=== PATIENT | male | born 1950 | race American Indian/Alaskan Native ===

== ENCOUNTER 2018-09-21 16:59 | Inpatient (IN) | payer MEDICARE ==
[2018-09-21] MEDS ORDERED: NORMODYNE IV ONE (17:28)
[2018-09-21 18:02] LABS: Basophils % (Auto) 0.2 % (0.0-1.8); Eosinophils # (Auto) 0.1 K/mm3 (0.0-0.4); Eosinophils % (Auto) 1.2 % (0.0-4.3); Hematocrit 29.9 % (35.5-45.6); Hemoglobin 10.1 gm/dl (11.8-15.2); Lymphocytes # (Auto) 0.4 K/mm3 (1.2-5.4); Lymphocytes % (Auto) 9.8 % (13.4-35.0); Mean Corpuscular HGB Conc 34 % (32-34); Mean Corpuscular Volume 77 fl (84-94); Monocytes # (Auto) 0.3 K/mm3 (0.0-0.8); Monocytes % (Auto) 7.8 % (0.0-7.3); Platelet Count 185 K/mm3 (140-440); Red Blood Count 3.88 M/mm3 (3.65-5.03); Red Cell Distribution Width 14.3 % (13.2-15.2)
--- NOTE | 2018-09-21 18:05 | XRay Report ---
PROCEDURE: XR CHEST 1V AP TECHNIQUE: Chest radiograph single view. HISTORY: blurry vision TIA COMPARISONS: None . FINDINGS: Single frontal view of the chest was acquired. The heart is normal in size. The lungs appea r clear. The pleura and mediastinum are within normal limits. IMPRESSION: No active disease in the chest This document is electronically signed by Orlin Gamboa MD., Sep 21 2018 06:03:43 PM ET
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
[2018-09-21] MEDS ORDERED: HumuLIN R IV ONE (18:10)
[2018-09-21 18:12] LABS: INR 1.03 (0.87-1.13); Partial Thromboplastin Time 27.3 Sec. (24.2-36.6)
[2018-09-21 18:13] LABS: Thrombin Time 15.7 Sec. (15.1-19.6)
[2018-09-21 18:27] LABS: Alanine Aminotransferase 10 units/L (7-56); Albumin 3.9 g/dL (3.9-5); BUN/Creatinine Ratio 13; Blood Urea Nitrogen 25 mg/dL (9-20); Hemolysis Index 2
--- NOTE | 2018-09-21 20:02 | Cat Scan Report ---
PROCEDURE: CT HEAD/BRAIN WO CON TECHNIQUE: Computerized tomography of the head was performed without contrast material. CT DOSE LENGTH PRODUCT: 912.7 mGycm HISTORY: Stroke symptoms COMPARISONS: None . FINDINGS: Low-attenuation in the subcortical and deep white matter of the cerebral hemispheres bilaterally most likely represent chronic postischemic demyelination/small vessel disease. There are lacunar infarcts in the right caudate, thalami bilaterally and within the fabian on the right , some of indeterminate age. There is no evidence of intracranial hemorrhage or mass effect. Ventricular size is concordant with the degree of atrophy. There is atherosclerotic vascular calcification of the internal carotid arteries and vertebral arteri es bilaterally at the skull base. The visualized portions of the orbits, paranasal and mastoid sinuses are unremarkable. The bony structures are unremarkable. IMPRESSION: 1. Lacunar infarcts in the right caudate, thalami bilaterally and fabian on the right, some of indeterm inate age. 2. White matter changes that most likely represent chronic postischemic demyelination/small vessel di sease. If there is a clinical suspicion of an acute intracranial process, MRI brain may be helpful.. This document is electronically signed by Shona Davidson MD., Sep 21 2018 06:40:18 PM ET
[2018-09-21] MEDS ORDERED: MORPHINE IV PRN (20:04)
[2018-09-21] MEDS ORDERED: PERCOCET 5/325 PO PRN (20:04)
[2018-09-21] MEDS ORDERED: ZOFRAN IV PRN (20:04)
[2018-09-21] MEDS ORDERED: SODIUM CHLORIDE FLUSH SYRINGE 10 ML IV PRN (20:04)
[2018-09-21] MEDS ORDERED: D50W (25GM) Syringe IV PRN (20:04)
[2018-09-21] MEDS ORDERED: TYLENOL PO PRN (20:04)
[2018-09-21] MEDS ORDERED: NORVASC PO ONE ×2 (20:20→21:00)
[2018-09-21] MEDS ORDERED: APRESOLINE IV PRN (20:20)
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
[2018-09-21] MEDS ORDERED: NACL 0.9% 1000 ML 1,000 ML IV SCH (21:00)
[2018-09-21] MEDS ORDERED: NORVASC ONE (21:28)
[2018-09-21 21:33] LABS: Chol/HDL Ratio 4.6 %
[2018-09-22 00:09] LABS: Creatinine,Urine 102.8 mg/dL (0.1-20.0)
[2018-09-22] MEDS: COREG PO SCH ×3 (07:43→21:52)
[2018-09-22] MEDS: COLACE PO SCH ×3 (07:43→21:52)
[2018-09-22] MEDS: HEPARIN SUB-Q SCH ×3 (07:43→21:51)
[2018-09-22] MEDS: HumaLOG SUB-Q SCH ×8 (07:44→21:51)
[2018-09-22] MEDS: LANTUS SUB-Q SCH ×2 (07:44→21:50)
[2018-09-22] MEDS: SODIUM CHLORIDE FLUSH SYRINGE 10 ML IV SCH ×3 (07:45→21:53)
[2018-09-22 07:49] LABS: Basophils % (Auto) 0.4 % (0.0-1.8); Eosinophils # (Auto) 0.1 K/mm3 (0.0-0.4); Eosinophils % (Auto) 3.1 % (0.0-4.3); Hematocrit 29.4 % (35.5-45.6); Hemoglobin 10.2 gm/dl (11.8-15.2); Lymphocytes # (Auto) 0.5 K/mm3 (1.2-5.4); Lymphocytes % (Auto) 12.6 % (13.4-35.0); Mean Corpuscular HGB Conc 35 % (32-34); Mean Corpuscular Volume 76 fl (84-94); Monocytes # (Auto) 0.4 K/mm3 (0.0-0.8); Platelet Count 181 K/mm3 (140-440); Red Blood Count 3.85 M/mm3 (3.65-5.03); Red Cell Distribution Width 14.2 % (13.2-15.2)
[2018-09-22 08:11] LABS: Calcium 8.9 mg/dL (8.4-10.2)
--- NOTE | 2018-09-22 08:19 | Progress Note ---
Assessment and Plan Assessment and plan: Patient is a 68 yo man with a history of DM type 2, hypertension, PVD, TIA and Diabetes retinopathy who presents to [facility] ED with dizziness and blurry vision. Pt states that he ran out of his blood pressure medicine approximately 2-3 days ago. He admits to being noncompliant with metformin. On presentation, patient was diaphoretic, in hypertensive emergency with blood pressure 200/110, tachycardic with heart rate 1 10 bpm and a blood glucose level of 405. BUN and creatinine elevated at 25/2.0. CT head showed chronic lacunar infarcts in the right caudate, thalami bilaterally and fabian on the right, some of indeterminate age. MRI/MRA pending. Will admit to telemetry unit. He is a very poor histor mariola * EKG: image reviewed (sinus rhythm at 82 bpm, prolonged WI interval) * Chest x-ray: report reviewed (no acute cardiopulmonary abnormalities), image reviewed * CT Scan - head: report reviewed (Lacunar infarcts in the right caudate, thalami bilaterally and fabian on the right, some of indeterminate age.White matter changes that most likely represent chronic postischemic demyelination/small vessel disease. If there is a clinical suspicion of an acute intracranial process, MRI brain may be helpful.), image reviewed MRI - head: pending Dizziness with Blurry vision: no Ophthalomologist available here but he saw his eye doctor, he doesn't exactly know his doctor name and he doesn't have his number, he calls the Laundry Assistant, Dr. Tse (sp) whom he saw about 2 months a go and was told he needed Laser eye surgery but insurance referral never came through, his vision continued to declined to the point, he can't see anymore. Will continue work up for stroke Malignant Hypertension with urgency: treat with IV antihypertensives, low salt diet, juvenile counselor on compliance, Start Norvasc 10 mg daily, Coreg 12.5mg twice a day Suspicion of TIA: MRI head pending, treat with asa and statins, Neuro checks per stroke protocol DM2- uncontrolled hyperglycemia: add ssi, ada diet, A1C is 12 Microcytic Anemia appears chronic: juvenile counselor on colonoscopy, monitor cbc closely HUANG, tubular necrosis and vasomotor nephropathy, poa, Cr 2.0-->1.7: treat with IVF and monitor bmp closely Hyponatremia, Dehydration: treat with IVF and monitor bmp closely PAD associated with DM, 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 Follow-up on current diagnosis of dizziness and uncontrolled bp. No overnight events reported to me. Patient denies any chest pain, shortness breath, nausea/vomiting or severe headaches. Imaging, nursing note, chart, labs and old chart reviewed. Discussed with patient. Hospitalist Physical - Physical exam Narrative exam: Gen: WDWN, NAD, Awake, Alert, Orientated HEENT: NCAT, EOMI, PERRL, OP Clear Neck: supple, no adenopathy, no thyromegaly, no JVD CVS/Heart: RRR, normal S1S2, pulses present bilaterally Chest/Lungs: CTA B, Symmetrical chest expansion, good air entry bilaterally GI/Abdomen: soft, NTND, good bowel sounds, no guarding or rebound /Bladder: no suprapubic tenderness, no CVA or paraspinal tenderness Extermity/Skin: no c/c/e, no obvious rash MSK: FROM x 4 Neuro: CN 2-12 grossly intact, no new focal deficits Psych: calm - Constitutional Vitals: Temp Pulse Resp BP Pulse Ox 98.3 F 65 18 197/82 99 09/22/18 07:23 09/22/18 07:23 09/22/18 07:23 09/22/18 07:23 09/22/18 07:23 Results - Labs CBC & Chem 7: 09/22/18 07:18 09/22/18 07:18 Labs: Laboratory Last Values WBC 4.2 K/mm3 (4.5-11.0) L 09/22/18 07:18 RBC 3.85 M/mm3 (3.65-5.03) 09/22/18 07:18 Hgb 10.2 gm/dl (11.8-15.2) L 09/22/18 07:18 Hct 29.4 % (35.5-45.6) L 09/22/18 07:18 MCV 76 fl (84-94) L 09/22/18 07:18 MCH 26 pg (28-32) L 09/22/18 07:18 MCHC 35 % (32-34) H 09/22/18 07:18 RDW 14.2 % (13.2-15.2) 09/22/18 07:18 Plt Count 181 K/mm3 (140-440) 09/22/18 07:18 Lymph % (Auto) 12.6 % (13.4-35.0) L 09/22/18 07:18 Dickey % (Auto) 10.0 % (0.0-7.3) H 09/22/18 07:18 Eos % (Auto) 3.1 % (0.0-4.3) 09/22/18 07:18 Baso % (Auto) 0.4 % (0.0-1.8) 09/22/18 07:18 Lymph # 0.5 K/mm3 (1.2-5.4) L 09/22/18 07:18 Dickey # 0.4 K/mm3 (0.0-0.8) 09/22/18 07:18 Eos # 0.1 K/mm3 (0.0-0.4) 09/22/18 07:18 Baso # 0.0 K/mm3 (0.0-0.1) 09/22/18 07:18 Seg Neutrophils % 73.9 % (40.0-70.0) H 09/22/18 07:18 Seg Neutrophils # 3.1 K/mm3 (1.8-7.7) 09/22/18 07:18 PT 14.1 Sec. (12.2-14.9) 09/21/18 Unknown INR 1.03 (0.87-1.13) 09/21/18 Unknown APTT 27.3 Sec. (24.2-36.6) 09/21/18 Unknown 15.7 Sec. (15.1-19.6) 09/21/18 Unknown Sodium 137 mmol/L (137-145) 09/22/18 07:18 Potassium 4.2 mmol/L (3.6-5.0) 09/22/18 07:18 Chloride 99.0 mmol/L (98-107) 09/22/18 07:18 Carbon Dioxide 26 mmol/L (22-30) 09/22/18 07:18 16 mmol/L 09/22/18 07:18 BUN 20 mg/dL (9-20) 09/22/18 07:18 1.7 mg/dL (0.8-1.5) H 09/22/18 07:18 Estimated GFR 49 ml/min 09/22/18 07:18 12 % 09/22/18 07:18 Glucose 291 mg/dL (75-100) H 09/22/18 07:18 POC Glucose 228 (70-105) H 09/21/18 22:28 12.0 % (4-6) H 09/21/18 Unknown Calcium 8.9 mg/dL (8.4-10.2) 09/22/18 07:18 0.30 mg/dL (0.1-1.2) 09/21/18 Unknown AST 14 units/L (5-40) 09/21/18 Unknown ALT 10 units/L (7-56) 09/21/18 Unknown 107 units/L (35-129) 09/21/18 Unknown < 0.010 ng/mL (0.00-0.029) 09/21/18 Unknown 7.4 g/dL (6.3-8.2) 09/21/18 Unknown 3.9 g/dL (3.9-5) 09/21/18 Unknown 1.1 % 09/21/18 Unknown Triglycerides 115 mg/dL (2-149) 09/21/18 Unknown Cholesterol 244 mg/dL (50-199) H 09/21/18 Unknown 181 mg/dL (50-130) H 09/21/18 Unknown 53 mg/dL (40-59) 09/21/18 Unknown 4.60 % 09/21/18 Unknown 102.8 mg/dL (0.1-20.0) H 09/21/18 23:24 58.4 mg/dL (0.1-34.0) H 09/21/18 23:24 Microalb/Creat Ratio 568.0 ug/mg 09/21/18 23:24 Active Medications - Current Medications Current Medications: Generic Name Dose Route Start Last Admin Trade Name Freq PRN Reason Stop Dose Admin Acetaminophen 650 mg 09/21/18 20:04 Tylenol PO Q4H PRN Pain MILD(1-3)/Fever >100.5/PERRY Aspirin 325 mg 09/22/18 10:00 Aspirin PO QDAY [facility] Atorvastatin Calcium 40 mg 09/21/18 22:00 09/22/18 07:45 Lipitor PO Not Given QHS [facility] Carvedilol 12.5 mg 09/21/18 22:00 09/22/18 07:43 Coreg PO Not Given BID [facility] Dextrose 50 ml 09/21/18 20:04 D50w (25gm) Syringe IV PRN PRN Hypoglycemia Docusate Sodium 100 mg 09/21/18 22:00 09/22/18 07:43 Colace PO Not Given BID [facility] Heparin Sodium (Porcine) 5,000 unit 09/21/18 22:00 09/22/18 07:43 Heparin SUB-Q Not Given Q12HR [facility] Hydralazine HCl 10 mg 09/21/18 20:20 Apresoline IV Q4HR PRN HTN SBP>160,DAVID>100 Sodium Chloride 1,000 mls @ 125 mls/hr 09/21/18 21:00 Nacl 0.9% 1000 Ml IV DIRECT [facility] Insulin Glargine 10 units 09/21/18 22:00 09/22/18 07:44 Lantus SUB-Q Not Given QHS [facility] Insulin Human Lispro 0 unit 09/21/18 22:00 09/22/18 07:44 Humalog SUB-Q Not Given ACHS [facility] Protocol Insulin Human Lispro 5 unit 09/22/18 07:30 Humalog SUB-Q [facility] Morphine Sulfate 2 mg 09/21/18 20:04 Morphine IV 09/22/18 23:59 Q4H PRN Pain, Moderate (4-6) Ondansetron HCl 4 mg 09/21/18 20:04 Zofran IV Q8H PRN Nausea And Vomiting Oxycodone/Acetaminophen 1 tab 09/21/18 20:04 Percocet 5/325 PO Q6H PRN Pain, Moderate (4-6) Sodium Chloride 10 ml 09/21/18 22:00 09/22/18 07:45 Sodium Chloride Flush Syringe 10 Ml IV Not Given BID [facility] Sodium Chloride 10 ml 09/21/18 20:04 Sodium Chloride Flush Syringe 10 Ml IV PRN PRN LINE FLUSH
[2018-09-22] MEDS: ASPIRIN PO SCH (09:53)
[2018-09-23] MEDS: HumaLOG SUB-Q SCH ×7 (08:00→22:11)
[2018-09-23 08:53] LABS: Hematocrit 31.4 % (35.5-45.6); Hemoglobin 10.7 gm/dl (11.8-15.2); Mean Corpuscular HGB Conc 34 % (32-34); Mean Corpuscular Volume 77 fl (84-94); Platelet Count 190 K/mm3 (140-440); Red Blood Count 4.05 M/mm3 (3.65-5.03); Red Cell Distribution Width 14.5 % (13.2-15.2)
[2018-09-23 09:06] LABS: Calcium 8.9 mg/dL (8.4-10.2)
--- NOTE | 2018-09-23 10:45 | Consultation ---
Past History Past Medical History: diabetes, hypertension, PVD Past Surgical History: Other (partial" refractory to) Social history: no significant social history Family history: no significant family history Medications and Allergies Allergies Allergy/AdvReac Type Severity Reaction Status Date / Time No Known Allergies Allergy Unverified 09/21/18 17:11 Home Medications Medication Instructions Recorded Confirmed Last Taken Type Metformin HCl [metFORMIN] 1,000 mg PO BID 09/21/18 09/21/18 Unknown History Active Meds: Active Medications Acetaminophen (Tylenol) 650 mg PO Q4H PRN PRN Reason: Pain MILD(1-3)/Fever >100.5/PERRY Aspirin (Aspirin) 325 mg PO QDAY [facility] Last Admin: 09/22/18 09:53 Dose: 325 mg Documented by: Atorvastatin Calcium (Lipitor) 40 mg PO QHS [facility] Last Admin: 09/22/18 21:52 Dose: 40 mg Documented by: Carvedilol (Coreg) 12.5 mg PO BID [facility] Last Admin: 09/22/18 21:52 Dose: 12.5 mg Documented by: Dextrose (D50w (25gm) Syringe) 50 ml IV PRN PRN PRN Reason: Hypoglycemia Docusate Sodium (Colace) 100 mg PO BID [facility] Last Admin: 09/22/18 21:52 Dose: 100 mg Documented by: Heparin Sodium (Porcine) (Heparin) 5,000 unit SUB-Q Q12HR [facility] Last Admin: 09/22/18 21:51 Dose: 5,000 unit Documented by: Hydralazine HCl (Apresoline) 10 mg IV Q4HR PRN PRN Reason: HTN SBP>160,DAVID>100 Sodium Chloride (Nacl 0.9% 1000 Ml) 1,000 mls @ 125 mls/hr IV DIRECT [facility] Insulin Glargine (Lantus) 10 units SUB-Q QHS [facility] Last Admin: 09/22/18 21:50 Dose: 10 units Documented by: Insulin Human Lispro (Humalog) 0 unit SUB-Q [facility]; Protocol Last Admin: 09/22/18 21:51 Dose: 4 unit Documented by: Insulin Human Lispro (Humalog) 5 unit SUB-Q [facility] Last Admin: 09/22/18 18:58 Dose: Not Given Documented by: Ondansetron HCl (Zofran) 4 mg IV Q8H PRN PRN Reason: Nausea And Vomiting Oxycodone/Acetaminophen (Percocet 5/325) 1 tab PO Q6H PRN PRN Reason: Pain, Moderate (4-6) Sodium Chloride (Sodium Chloride Flush Syringe 10 Ml) 10 ml IV BID JULIENNE Last Admin: 09/22/18 21:53 Dose: 10 ml Documented by: Sodium Chloride (Sodium Chloride Flush Syringe 10 Ml) 10 ml IV PRN PRN PRN Reason: LINE FLUSH Physical Examination - Vital Signs Vital Signs: Vital Signs Pulse Resp BP Pulse Ox 110 H 18 200/110 97 09/21/18 17:07 09/21/18 17:07 09/21/18 17:07 09/21/18 17:07 Results - Laboratory Findings CBC and BMP: 09/23/18 07:43 09/23/18 07:43 Abnormal Lab Findings: Abnormal Labs 09/21/18 09/21/18 09/21/18 17:57 22:28 23:24 WBC Hgb Hct MCV MCH MCHC Lymph % (Auto) Pickett % (Auto) Lymph # Seg Neutrophils % Sodium Chloride BUN Creatinine Glucose POC Glucose 382 H 228 H Hemoglobin A1c Cholesterol LDL Cholesterol Direct Urine Creatinine 102.8 H Urine Microalbumin 58.4 H 09/21/18 09/21/18 09/21/18 Unknown Unknown Unknown WBC 4.4 L Hgb 10.1 L Hct 29.9 L MCV 77 L MCH 26 L MCHC Lymph % (Auto) 9.8 L Pickett % (Auto) 7.8 H Lymph # 0.4 L Seg Neutrophils % 81.0 H Sodium 135 L Chloride 95.2 L BUN 25 H Creatinine 2.0 H Glucose 408 H POC Glucose Hemoglobin A1c 12.0 H Cholesterol LDL Cholesterol Direct Urine Creatinine Urine Microalbumin 09/21/18 09/22/18 09/22/18 Unknown 07:18 07:18 WBC 4.2 L Hgb 10.2 L Hct 29.4 L MCV 76 L MCH 26 L MCHC 35 H Lymph % (Auto) 12.6 L Pickett % (Auto) 10.0 H Lymph # 0.5 L Seg Neutrophils % 73.9 H Sodium Chloride BUN Creatinine 1.7 H Glucose 291 H POC Glucose Hemoglobin A1c Cholesterol 244 H LDL Cholesterol Direct 181 H Urine Creatinine Urine Microalbumin 09/22/18 09/22/18 09/23/18 11:00 21:17 07:42 WBC Hgb Hct MCV MCH MCHC Lymph % (Auto) Pickett % (Auto) Lymph # Seg Neutrophils % Sodium Chloride BUN Creatinine Glucose POC Glucose 466 H 259 H 206 H Hemoglobin A1c Cholesterol LDL Cholesterol Direct Urine Creatinine Urine Microalbumin 09/23/18 09/23/18 07:43 07:43 WBC Hgb 10.7 L Hct 31.4 L MCV 77 L MCH 26 L MCHC Lymph % (Auto) Pickett % (Auto) Lymph # Seg Neutrophils % Sodium 134 L Chloride BUN 24 H Creatinine 1.7 H Glucose 207 H POC Glucose Hemoglobin A1c Cholesterol LDL Cholesterol Direct Urine Creatinine Urine Microalbumin Assessment and Plan This is Dr. 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 Patient states that he ate a hamburger, turkmen johnson and vanilla frosty after which he started developing blurred vision which gradually got worse.When he came to the parking lot and got inside his car he was noticed by an unknown person in the parking lot that his driving was very slow and he approached him and found that he complained of blurred vision and dizziness and that person called 911, and he was brought to the hospital. Patient states that after 5 or 6 hours in the hospital he started feeling better. On arrrival to the hospital his blood sugar was found to be high. Patient states that he was not compliant with his diabetic and hypertensive medication. Although he was recommended strongly to take aspirin regularly he did not take it. On admission CT scan of the brain showed old right thalamic infarct and another left thalamic infarct which is a little bigger size than the right thalamic infarct, left caudate infarct and left pontine infarct, all small vessel disease. physical examination. Gen. In no acute distress. Patient is alert and appropriate. Has insight into his problems and answers questions appropriately. Heart. Normal rate and rhythm Carotid. Both palpable Cranial nerves. Extra ocular movement is intact. No facial asymmetry. Patient can talk and swallow, other cranial nerves are within normal limit. Motor. Normal strength in all 4 extremities and there is no asymmetry of strength, both distally and proximally in all 4 extremities. Reflexes. All reflexes are within normal limit, although both ankle reflexes are absent and there was no asymmetry of reflexes between the right and left extremities. Bilateral down going toes. Sensory. Sensory examination showed patient had decreased sensation to pinprick and light touch on right half of the face, right half of the trunk, right upper and lower extremities. Patient has right tonio sensory deficit. Coordination was within normal limit. Gait: Gait testing was deferred as patient stated that today he has no problem walking. Impression #1 Patient's blurred vision and apparent dizziness seems to be hyperglycemia induced blurred vision in a background of diabetic retinopathy. #2 Patient's right tonio sensory deficit is due to left thalamic infarct which is old. #3 Patient has evidence of multiple lacunar infarcts involving the right side and left side of the brain i.e.thalamus, caudate nucleus and fabian,all small vessel disease indicating that they are from small vessel ischemia from hyalinization of small vessels rather than embolic in origin and those conditions are due to poor control of blood pressure and diabetes. Recommendation #1 patient should be compliant with his medication and should take 81 mg aspirin and statin every day and should take his blood pressure and diabetic medication regularly #2 patient should get a dietary consult so that he can avoid eating saturated fat and high carbohydrate which can be harmful for his overall diabetic control. #3 patient should have laser therapy for his diabetic retinopathy to improve his vision. #4. Should get carotid duplex and ECHO cardiogram as out patient.
--- NOTE | 2018-09-23 11:24 | Magnetic Resonance Report ---
MRI OF THE BRAIN WITHOUT CONTRAST: HISTORY: Stroke PROCEDURE: Multiplanar, multisequence MR imaging of the brain without IV contrast was performed. FINDINGS: Compared to the CT head dated 09/21/18. There is moderate diffuse volume loss and moderate chronic ischemic changes in the white matter. There is a subtle 5 mm focus of weak diffusion restriction in the splenium of the corpus callosum on the left side on diffusion image 18. There is suggestion of decreased signal in this area on the ADC map. This could represent a small focus of subacute ischemia. Focal demyelination could also be considered. There is no evidence for hemorrhage, mass, mass effect or extra-axial fluid collection. There is chronic lacunar infarct in the right fabian measures 1 cm. Chronic lacunar infarct in the right thalamus measures 8 mm. The midline structures are central. The basal cisterns are patent. Normal ventricular size. The orbital cavities and sella turcica demonstrate no abnormality. The visualized paranasal sinuses and mastoid air cells are well aerated. IMPRESSION: Questionable 5 mm focus of subacute ischemia in the splenium of the left corpus callosum. Demyelination could also be considered. Volume loss. Moderate chronic ischemic changes in the white matter. Chronic lacunar infarcts in the right thalamus and right fabian.
--- NOTE | 2018-09-23 11:25 | Magnetic Resonance Report ---
MRA HEAD WITHOUT CONTRAST HISTORY: Stroke. [id number] imaging with MIP reformations of the [place] of [place] is submitted. The arteries appear widely patent and free of hemodynamically significant stenosis, aneurysm or dissection. IMPRESSION: Unremarkable MRA head.
[2018-09-23] MEDS: COREG PO SCH ×2 (11:58→22:09)
[2018-09-23] MEDS: SODIUM CHLORIDE FLUSH SYRINGE 10 ML IV SCH ×2 (11:58→22:12)
[2018-09-23] MEDS: ASPIRIN PO SCH (11:58)
[2018-09-23] MEDS: COLACE PO SCH ×2 (11:58→22:10)
[2018-09-23] MEDS: HEPARIN SUB-Q SCH ×2 (11:59→22:10)
--- NOTE | 2018-09-23 13:03 | Progress Note ---
Assessment and Plan Assessment and plan: Patient is a 68 yo man with a history of DM type 2, hypertension, PVD, TIA and Diabetes retinopathy who presents to [facility] ED with dizziness and blurry vision. Pt states that he ran out of his blood pressure medicine approximately 2-3 days ago. He admits to being noncompliant with metformin. On presentation, patient was diaphoretic, in hypertensive emergency with blood pressure 200/110, tachycardic with heart rate 1 10 bpm and a blood glucose level of 405. BUN and creatinine elevated at 25/2.0. CT head showed chronic lacunar infarcts in the right caudate, thalami bilaterally and fabian on the right, some of indeterminate age. MRI/MRA pending. Will admit to telemetry unit. He is a very poor histor mariola * EKG: image reviewed (sinus rhythm at 82 bpm, prolonged WV interval) * Chest x-ray: report reviewed (no acute cardiopulmonary abnormalities), image reviewed * CT Scan - head: report reviewed (Lacunar infarcts in the right caudate, thalami bilaterally and fabian on the right, some of indeterminate age.White matter changes that most likely represent chronic postischemic demyelination/small vessel disease. If there is a clinical suspicion of an acute intracranial process, MRI brain may be helpful.), image reviewed * MRI brain without contrast IMPRESSION: Questionable 5 mm focus of subacute ischemia in the splenium of the left corpus callosum. Demyelination could also be considered. Volume loss. Moderate chronic ischemic changes in the white matter. Chronic lacunar infarcts in the right thalamus and right fabian. * MRA IMPRESSION: Unremarkable MRA head. Acute Stroke/CVA: treat with ASA and statin, Physical Therapy recommends SNF Dizziness with Blurry vision: no Ophthalomologist available here but he saw his eye doctor, he doesn't know his doctor name and he doesn't have his number, he calls the Resource Manager, Dr. Tse (sp) whom he saw about 2 months ago and was told he needed Laser eye surgery but insurance referral never came through, his vision continued to declined to the point where he can't see anymore. 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 History Interval history: Patient was seen and examined. Follow-up on current diagnosis of dizziness and uncontrolled bp. No overnight events reported to me. Patient denies any chest pain, shortness breath, nausea/vomiting or severe headaches. Imaging, nursing note, chart, labs and old chart reviewed. Discussed with patient. Hospitalist Physical - Physical exam Narrative exam: Gen: WDWN, NAD, Awake, Alert, Orientated HEENT: NCAT, EOMI, PERRL, OP Clear Neck: supple, no adenopathy, no thyromegaly, no JVD CVS/Heart: RRR, normal S1S2, pulses present bilaterally Chest/Lungs: CTA B, Symmetrical chest expansion, good air entry bilaterally GI/Abdomen: soft, NTND, good bowel sounds, no guarding or rebound /Bladder: no suprapubic tenderness, no CVA or paraspinal tenderness Extermity/Skin: no c/c/e, no obvious rash MSK: FROM x 4 Neuro: CN 2-12 grossly intact, no new focal deficits Psych: calm - Constitutional Vitals: Temp Pulse Resp BP Pulse Ox 98.0 F 51 L 18 169/72 100 09/23/18 07:39 09/23/18 07:39 09/23/18 07:39 09/23/18 07:39 09/23/18 07:39 Results - Labs CBC & Chem 7: 09/23/18 07:43 09/23/18 07:43 Labs: Laboratory Last Values WBC 4.5 K/mm3 (4.5-11.0) 09/23/18 07:43 RBC 4.05 M/mm3 (3.65-5.03) 09/23/18 07:43 Hgb 10.7 gm/dl (11.8-15.2) L 09/23/18 07:43 Hct 31.4 % (35.5-45.6) L 09/23/18 07:43 MCV 77 fl (84-94) L 09/23/18 07:43 MCH 26 pg (28-32) L 09/23/18 07:43 MCHC 34 % (32-34) 09/23/18 07:43 RDW 14.5 % (13.2-15.2) 09/23/18 07:43 Plt Count 190 K/mm3 (140-440) 09/23/18 07:43 Lymph % (Auto) 12.6 % (13.4-35.0) L 09/22/18 07:18 Finney % (Auto) 10.0 % (0.0-7.3) H 09/22/18 07:18 Eos % (Auto) 3.1 % (0.0-4.3) 09/22/18 07:18 Baso % (Auto) 0.4 % (0.0-1.8) 09/22/18 07:18 Lymph # 0.5 K/mm3 (1.2-5.4) L 09/22/18 07:18 Finney # 0.4 K/mm3 (0.0-0.8) 09/22/18 07:18 Eos # 0.1 K/mm3 (0.0-0.4) 09/22/18 07:18 Baso # 0.0 K/mm3 (0.0-0.1) 09/22/18 07:18 Seg Neutrophils % 73.9 % (40.0-70.0) H 09/22/18 07:18 Seg Neutrophils # 3.1 K/mm3 (1.8-7.7) 09/22/18 07:18 PT 14.1 Sec. (12.2-14.9) 09/21/18 Unknown INR 1.03 (0.87-1.13) 09/21/18 Unknown APTT 27.3 Sec. (24.2-36.6) 09/21/18 Unknown 15.7 Sec. (15.1-19.6) 09/21/18 Unknown Sodium 134 mmol/L (137-145) L 09/23/18 07:43 Potassium 4.4 mmol/L (3.6-5.0) 09/23/18 07:43 Chloride 98.8 mmol/L (98-107) 09/23/18 07:43 Carbon Dioxide 23 mmol/L (22-30) 09/23/18 07:43 17 mmol/L 09/23/18 07:43 BUN 24 mg/dL (9-20) H 09/23/18 07:43 1.7 mg/dL (0.8-1.5) H 09/23/18 07:43 Estimated GFR 49 ml/min 09/23/18 07:43 14 % 09/23/18 07:43 Glucose 207 mg/dL (75-100) H 09/23/18 07:43 POC Glucose 267 (70-105) H 09/23/18 12:50 12.0 % (4-6) H 09/21/18 Unknown Calcium 8.9 mg/dL (8.4-10.2) 09/23/18 07:43 0.30 mg/dL (0.1-1.2) 09/21/18 Unknown AST 14 units/L (5-40) 09/21/18 Unknown ALT 10 units/L (7-56) 09/21/18 Unknown 107 units/L (35-129) 09/21/18 Unknown < 0.010 ng/mL (0.00-0.029) 09/21/18 Unknown 7.4 g/dL (6.3-8.2) 09/21/18 Unknown 3.9 g/dL (3.9-5) 09/21/18 Unknown 1.1 % 09/21/18 Unknown Triglycerides 115 mg/dL (2-149) 09/21/18 Unknown Cholesterol 244 mg/dL (50-199) H 09/21/18 Unknown 181 mg/dL (50-130) H 09/21/18 Unknown 53 mg/dL (40-59) 09/21/18 Unknown 4.60 % 09/21/18 Unknown 102.8 mg/dL (0.1-20.0) H 09/21/18 23:24 58.4 mg/dL (0.1-34.0) H 09/21/18 23:24 Microalb/Creat Ratio 568.0 ug/mg 09/21/18 23:24 Active Medications - Current Medications Current Medications: Generic Name Dose Route Start Last Admin Trade Name Freq PRN Reason Stop Dose Admin Acetaminophen 650 mg 09/21/18 20:04 Tylenol PO Q4H PRN Pain MILD(1-3)/Fever >100.5/PERRY Aspirin 325 mg 09/22/18 10:00 09/23/18 11:58 Aspirin PO 325 mg QDAY JULIENNE Administration Atorvastatin Calcium 40 mg 09/21/18 22:00 09/22/18 21:52 Lipitor PO 40 mg QHS JULIENNE Administration Carvedilol 12.5 mg 09/21/18 22:00 09/23/18 11:58 Coreg PO 12.5 mg BID JULIENNE Administration Dextrose 50 ml 09/21/18 20:04 D50w (25gm) Syringe IV PRN PRN Hypoglycemia Docusate Sodium 100 mg 09/21/18 22:00 09/23/18 11:58 Colace PO 100 mg BID JULIENNE Administration Heparin Sodium (Porcine) 5,000 unit 09/21/18 22:00 09/23/18 11:59 Heparin SUB-Q 5,000 unit Q12HR JULIENNE Administration Hydralazine HCl 10 mg 09/21/18 20:20 Apresoline IV Q4HR PRN HTN SBP>160,DAVID>100 Sodium Chloride 1,000 mls @ 125 mls/hr 09/21/18 21:00 Nacl 0.9% 1000 Ml IV DIRECT JULIENNE Insulin Glargine 10 units 09/21/18 22:00 09/22/18 21:50 Lantus SUB-Q 10 units QHS [facility] Administration Insulin Human Lispro 0 unit 09/21/18 22:00 09/23/18 12:46 Humalog SUB-Q 4 unit ACHS [facility] Administration Protocol Insulin Human Lispro 5 unit 09/22/18 07:30 09/23/18 12:47 Humalog SUB-Q 5 unit AC JULIENNE Administration Ondansetron HCl 4 mg 09/21/18 20:04 Zofran IV Q8H PRN Nausea And Vomiting Oxycodone/Acetaminophen 1 tab 09/21/18 20:04 Percocet 5/325 PO Q6H PRN Pain, Moderate (4-6) Sodium Chloride 10 ml 09/21/18 22:00 09/23/18 11:58 Sodium Chloride Flush Syringe 10 Ml IV 10 ml BID JULIENNE Administration Sodium Chloride 10 ml 09/21/18 20:04 Sodium Chloride Flush Syringe 10 Ml IV PRN PRN LINE FLUSH Nutrition/Malnutrition Assess - Dietary Evaluation Nutrition/Malnutrition Findings: Nutrition Notes Start: 09/22/18 09:56 Freq: Status: Active Protocol: Document 09/22/18 09:56 LP (Rec: 09/22/18 09:58 LP [id number]) Nutrition Notes Need for Assessment generated from: MD Order,Education Initial or Follow up Brief Note Current Diagnosis Acute Kidney Injury,Decubitus( Pressure Ulcer),Hypertension Other Pertinent Diagnosis TIA, DM retinopathy Current Diet Cardiac/consistent CHO Labs/Tests A1c 12 Subjective/Other Information Consult for diet education. Pt has been eating Wendys frostys and large cups of lemonade. Pt was unaware of it being bad for him. #1 Nutrition Diagnosis Food and nutrition-related knowledge deficit Etiology DM As Evidenced by Signs and Symptoms Pt consuming large amounts of CHO Nutrition Intervention Teaching Recipient Patient Learning Readiness Good Teaching Methods Discussion Response to Teaching Verbalize understanding Education Handouts Provided Consistent CHO Barriers to Learning No Barriers RD phone number provided Yes Patient aware of follow up options Yes Revisit per MD consult or patient Sign Off request:
--- NOTE | 2018-09-23 16:31 | Vascular Lab Report ---
PROCEDURE: VL CAROTID DUPLEX BILAT TECHNIQUE: Duplex Doppler ultrasound of the common, internal and external carotid arteries and the v ertebral arteries was performed bilaterally. Vaughan scale imaging, velocity spectral waveform analysis, and color flow Doppler were employed. HISTORY: stroke COMPARISONS: None . Note: Measurement of carotid stenosis is based on flow velocity values that correlate with the [place] Symptomatic Carotid Endarterectomy Trial (NASCET) based stenosis criteria using the internal carotid artery diameter as the denominator for stenosis calculation. FINDINGS: RIGHT carotid artery: Velocities: ICA PSV: 41 cm/sec ICA End diastolic: 15 cm/sec CCA PSV: 82 cm/sec IC/CC ratio: 0.5 Plaque/color flow: Mild heterogeneous plaque without significant spectral broadening or abnormal col or flow . RIGHT vertebral artery: Antegrade systolic and diastolic flow LEFT carotid artery: Velocities: ICA PSV: 45 cm/sec ICA End diastolic: 14 cm/sec CCA PSV: 77 cm/sec IC/CC ratio: 0.58 Plaque/color flow: Mild heterogeneous plaque without significant spectral broadening or abnormal col or flow . LEFT vertebral artery: Antegrade systolic and diastolic flow IMPRESSION: 1. RIGHT carotid: No hemodynamically significant (less than 50 percent) internal carotid artery toan nosis. 2. LEFT carotid: No hemodynamically significant (less than 50 percent) internal carotid artery sten osis. 3. Vertebral arteries: Bilaterally antegrade. This document is electronically signed by Bree Robles., Sep 23 2018 04:29:41 PM ET
[2018-09-23] MEDS: LANTUS SUB-Q SCH (22:11)
[2018-09-24] MEDS: HumaLOG SUB-Q SCH ×7 (07:30→22:30)
[2018-09-24] MEDS: COLACE PO SCH ×2 (10:00→22:15)
[2018-09-24] MEDS: ASPIRIN PO SCH (10:00)
[2018-09-24] MEDS: HEPARIN SUB-Q SCH ×2 (10:00→22:16)
[2018-09-24] MEDS: SODIUM CHLORIDE FLUSH SYRINGE 10 ML IV SCH ×2 (10:00→22:31)
[2018-09-24] MEDS: COREG PO SCH ×2 (10:30→22:16)
--- NOTE | 2018-09-24 12:49 | Progress Note ---
Assessment and Plan Assessment and plan: Acute CVA. MRI/MRA revealed questionable 5 mm focus of subacute ischemia in the splenium of the left corpus callosum. Chronic lacunar infarcts in the right thalamus and right. Echocardiogram revealed left ventricular hypertrophy but global systolic function within normal limits. EF 60%. Carotid ultrasound revealed no hemodynamically significant stenosis. Continue PT/OT. Neurology consult. Accelerated hypertension. Continue to treat with IV hypertensive prn. Continue Norvasc and Coreg. Diabetes mellitus Type 2. Continue sliding scale insulin, ADA diet. Acute kidney injury. Etiology likely secondary to vasomotor nephropathy. Continue to follow creatinine. Peripheral vascular disease. 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 Pt states that he ran out of his blood pressure medicine approximately 2-3 days ago [employer]. He admitted to being noncompliant with metformin. On presentation, patient was diaphoretic, in hypertensive emergency with blood pressure 200/110, tachycardic with heart rate 110 bpm and a blood glucose level of 405. BUN and creatinine elevated at 25/2.0. CT head showed chronic lacunar infarcts in the right caudate, thalami bilaterally and fabian on the right, some of indeterminate age. MRI/MRA revealed questionable 5 mm focus of subacute ischemia in the splenium of the left corpus callosum. Chronic lacunar infarcts in the right thalamus and right. Patient was admitted for new CVA. Echocardiogram revealed left ventricular hypertrophy but global systolic function within normal limits. EF 60%. Carotid ultrasound revealed no hemodynamically significant stenosis. Hospitalist Physical - Constitutional Vitals: Temp Pulse Resp BP Pulse Ox 98.3 F 58 L 18 162/67 99 09/24/18 11:54 09/24/18 11:54 09/24/18 11:54 09/24/18 11:54 09/24/18 11:54 General appearance: Present: no acute distress, well-nourished - EENT Eyes: Present: PERRL, EOM intact ENT: hearing intact, clear oral mucosa, dentition normal - Neck Neck: Present: supple, normal ROM - Respiratory Respiratory effort: normal Respiratory: bilateral: CTA - Cardiovascular Rhythm: regular Heart Sounds: Present: S1 & S2. Absent: gallop, rub - Extremities Extremities: no ischemia, No edema, Full ROM - Abdominal General gastrointestinal: soft, non-tender, non-distended, normal bowel sounds - Integumentary Integumentary: Present: clear, warm, dry - Neurologic Neurologic: CNII-XII intact, moves all extremities Results - Labs CBC & Chem 7: 09/23/18 07:43 09/23/18 07:43 Labs: Laboratory Last Values WBC 4.5 K/mm3 (4.5-11.0) 09/23/18 07:43 RBC 4.05 M/mm3 (3.65-5.03) 09/23/18 07:43 Hgb 10.7 gm/dl (11.8-15.2) L 09/23/18 07:43 Hct 31.4 % (35.5-45.6) L 09/23/18 07:43 MCV 77 fl (84-94) L 09/23/18 07:43 MCH 26 pg (28-32) L 09/23/18 07:43 MCHC 34 % (32-34) 09/23/18 07:43 RDW 14.5 % (13.2-15.2) 09/23/18 07:43 Plt Count 190 K/mm3 (140-440) 09/23/18 07:43 Lymph % (Auto) 12.6 % (13.4-35.0) L 09/22/18 07:18 Gordon % (Auto) 10.0 % (0.0-7.3) H 09/22/18 07:18 Eos % (Auto) 3.1 % (0.0-4.3) 09/22/18 07:18 Baso % (Auto) 0.4 % (0.0-1.8) 09/22/18 07:18 Lymph # 0.5 K/mm3 (1.2-5.4) L 09/22/18 07:18 Gordon # 0.4 K/mm3 (0.0-0.8) 09/22/18 07:18 Eos # 0.1 K/mm3 (0.0-0.4) 09/22/18 07:18 Baso # 0.0 K/mm3 (0.0-0.1) 09/22/18 07:18 Seg Neutrophils % 73.9 % (40.0-70.0) H 09/22/18 07:18 Seg Neutrophils # 3.1 K/mm3 (1.8-7.7) 09/22/18 07:18 PT 14.1 Sec. (12.2-14.9) 09/21/18 Unknown INR 1.03 (0.87-1.13) 09/21/18 Unknown APTT 27.3 Sec. (24.2-36.6) 09/21/18 Unknown 15.7 Sec. (15.1-19.6) 09/21/18 Unknown Sodium 134 mmol/L (137-145) L 09/23/18 07:43 Potassium 4.4 mmol/L (3.6-5.0) 09/23/18 07:43 Chloride 98.8 mmol/L (98-107) 09/23/18 07:43 Carbon Dioxide 23 mmol/L (22-30) 09/23/18 07:43 17 mmol/L 09/23/18 07:43 BUN 24 mg/dL (9-20) H 09/23/18 07:43 1.7 mg/dL (0.8-1.5) H 09/23/18 07:43 Estimated GFR 49 ml/min 09/23/18 07:43 14 % 09/23/18 07:43 Glucose 207 mg/dL (75-100) H 09/23/18 07:43 POC Glucose 98 (70-105) 09/24/18 08:06 12.0 % (4-6) H 09/21/18 Unknown Calcium 8.9 mg/dL (8.4-10.2) 09/23/18 07:43 0.30 mg/dL (0.1-1.2) 09/21/18 Unknown AST 14 units/L (5-40) 09/21/18 Unknown ALT 10 units/L (7-56) 09/21/18 Unknown 107 units/L (35-129) 09/21/18 Unknown < 0.010 ng/mL (0.00-0.029) 09/21/18 Unknown 7.4 g/dL (6.3-8.2) 09/21/18 Unknown 3.9 g/dL (3.9-5) 09/21/18 Unknown 1.1 % 09/21/18 Unknown Triglycerides 115 mg/dL (2-149) 09/21/18 Unknown Cholesterol 244 mg/dL (50-199) H 09/21/18 Unknown 181 mg/dL (50-130) H 09/21/18 Unknown 53 mg/dL (40-59) 09/21/18 Unknown 4.60 % 09/21/18 Unknown 102.8 mg/dL (0.1-20.0) H 09/21/18 23:24 58.4 mg/dL (0.1-34.0) H 09/21/18 23:24 Microalb/Creat Ratio 568.0 ug/mg 09/21/18 23:24 Active Medications - Current Medications Current Medications: Generic Name Dose Route Start Last Admin Trade Name Freq PRN Reason Stop Dose Admin Acetaminophen 650 mg 09/21/18 20:04 Tylenol PO Q4H PRN Pain MILD(1-3)/Fever >100.5/PERRY Aspirin 325 mg 09/22/18 10:00 09/24/18 10:00 Aspirin PO 325 mg QDAY JULIENNE Administration Atorvastatin Calcium 40 mg 09/21/18 22:00 09/23/18 22:10 Lipitor PO 40 mg QHS JULIENNE Administration Carvedilol 12.5 mg 09/21/18 22:00 09/24/18 10:30 Coreg PO 12.5 mg BID JULIENNE Administration Dextrose 50 ml 09/21/18 20:04 D50w (25gm) Syringe IV PRN PRN Hypoglycemia Docusate Sodium 100 mg 09/21/18 22:00 09/24/18 10:00 Colace PO 100 mg BID JULIENNE Administration Heparin Sodium (Porcine) 5,000 unit 09/21/18 22:00 09/24/18 10:00 Heparin SUB-Q 5,000 unit Q12HR JULIENNE Administration Hydralazine HCl 10 mg 09/21/18 20:20 Apresoline IV Q4HR PRN HTN SBP>160,DAVID>100 Sodium Chloride 1,000 mls @ 125 mls/hr 09/21/18 21:00 Nacl 0.9% 1000 Ml IV DIRECT JULIENNE Insulin Glargine 10 units 09/21/18 22:00 09/23/18 22:11 Lantus SUB-Q 10 units QHS JULIENNE Administration Insulin Human Lispro 0 unit 09/21/18 22:00 09/24/18 11:30 Humalog SUB-Q 4 unit ACHS JULIENNE Administration Protocol Insulin Human Lispro 5 unit 09/22/18 07:30 09/24/18 11:30 Humalog SUB-Q 5 unit AC JULIENNE Administration Ondansetron HCl 4 mg 09/21/18 20:04 Zofran IV Q8H PRN Nausea And Vomiting Oxycodone/Acetaminophen 1 tab 09/21/18 20:04 Percocet 5/325 PO Q6H PRN Pain, Moderate (4-6) Sodium Chloride 10 ml 09/21/18 22:00 09/24/18 10:00 Sodium Chloride Flush Syringe 10 Ml IV 10 ml BID JULIENNE Administration Sodium Chloride 10 ml 09/21/18 20:04 Sodium Chloride Flush Syringe 10 Ml IV PRN PRN LINE FLUSH Nutrition/Malnutrition Assess - Dietary Evaluation Nutrition/Malnutrition Findings: Nutrition Notes Start: 09/22/18 09:56 Freq: Status: Active Protocol: Document 09/22/18 09:56 LP (Rec: 09/22/18 09:58 LP [id number]) Nutrition Notes Need for Assessment generated from: MD Order,Education Initial or Follow up Brief Note Current Diagnosis Acute Kidney Injury,Decubitus( Pressure Ulcer),Hypertension Other Pertinent Diagnosis TIA, DM retinopathy Current Diet Cardiac/consistent CHO Labs/Tests A1c 12 Subjective/Other Information Consult for diet education. Pt has been eating Wendys frostys and large cups of lemonade. Pt was unaware of it being bad for him. #1 Nutrition Diagnosis Food and nutrition-related knowledge deficit Etiology DM As Evidenced by Signs and Symptoms Pt consuming large amounts of CHO Nutrition Intervention Teaching Recipient Patient Learning Readiness Good Teaching Methods Discussion Response to Teaching Verbalize understanding Education Handouts Provided Consistent CHO Barriers to Learning No Barriers RD phone number provided Yes Patient aware of follow up options Yes Revisit per MD consult or patient Sign Off request:
[2018-09-24] MEDS: LANTUS SUB-Q SCH (22:30)
[2018-09-25 06:16] LABS: Basophils % (Auto) 0.5 % (0.0-1.8); Eosinophils # (Auto) 0.1 K/mm3 (0.0-0.4); Eosinophils % (Auto) 3.6 % (0.0-4.3); Hematocrit 26.4 % (35.5-45.6); Hemoglobin 9.1 gm/dl (11.8-15.2); Lymphocytes # (Auto) 0.6 K/mm3 (1.2-5.4); Lymphocytes % (Auto) 16.7 % (13.4-35.0); Mean Corpuscular HGB Conc 34 % (32-34); Mean Corpuscular Volume 76 fl (84-94); Monocytes # (Auto) 0.4 K/mm3 (0.0-0.8); Monocytes % (Auto) 11.4 % (0.0-7.3); Platelet Count 178 K/mm3 (140-440); Red Blood Count 3.46 M/mm3 (3.65-5.03); Red Cell Distribution Width 14.5 % (13.2-15.2)
[2018-09-25 06:34] LABS: Calcium 9.1 mg/dL (8.4-10.2)
[2018-09-25 11:20] VITALS: BP 172/71
[2018-09-25] MEDS: ASPIRIN PO SCH (12:00)
[2018-09-25] MEDS: COLACE PO SCH (12:00)
[2018-09-25] MEDS: HEPARIN SUB-Q SCH (12:00)
[2018-09-25] MEDS: COREG PO SCH (12:00)
--- NOTE | 2018-09-25 12:10 | Discharge Summary ---
Providers - Providers Date of Admission: 09/21/18 19:36 Date of discharge: 09/25/18 Attending physician: GISELA COLEMAN 09/21/18 20:04 Consult to Dietitian/Nutrition [CONS] Routine Physician Instructions: Reason For Exam: Reason for Consult: Diet education Occupational Therapy Evaluate and Treat [CONS] Routine Comment: Reason For Exam: Neuro deficits Physical Therapy Evaluation and Treat [CONS] Routine Comment: Reason For Exam: Neuro deficits 09/21/18 20:05 Consult to Physician [CONS] Routine Comment: Consulting Provider: JOSELITO HUGO Physician Instructions: Reason For Exam: TIA 09/23/18 12:56 Consult Acute Rehabilitation [CONS] Routine Consulting Provider: Physician Instructions: Reason For Exam: IRU Evaluation Primary care physician: RAPHAEL MOORE Hospitalization Reason for admission: cva Condition: Stable Hospital course: Patient is a 68 yo man with a history of DM type 2, hypertension, PVD, TIA and Diabetes retinopathy who presents to [facility] ED with dizziness and blurry vision. Pt stated that he ran out of his blood pressure medicine approximately 2-3 days ago [employer]. He admitted to being noncompliant with metformin. On presentation, patient was diaphoretic, in hypertensive emergency with blood pressure 200/110, tachycardic with heart rate 110 bpm and a blood glucose level of 405. BUN and creatinine elevated at 25/2.0. CT head showed chronic lacunar infarcts in the right caudate, thalami bilaterally and fabian on the right, some of indeterminate age. MRI/MRA revealed questionable 5 mm focus of subacute ischemia in the splenium of the left corpus callosum. Chronic lacunar infarcts in the right thalamus and right. Patient was admitted for new CVA. Echocardiogram revealed left ventricular hypertrophy but global systolic function within normal limits. EF 60%. Carotid ultrasound revealed no hemodynamically significant stenosis. Neurology saw the patient consultation and recommended secondary prevention with aspirin and statin. Physical therapy saw the patient in consultation and noted over the course of the hospitalization improved gait and balance. Physical therapy recommended outpatient physical therapy and DME needs of a rolling walker. Patient is felt to have received maximal hospital benefit and will be discharged home. Dedicated discharge time 32 minutes. Disposition: - TO HOME OR SELFCARE Time spent for discharge: 32 - Discharge Diagnoses (1) CVA (cerebral vascular accident) Status: Acute (2) Diabetes mellitus Status: Acute (3) HUANG (acute kidney injury) Status: Acute (4) Accelerated hypertension Status: Acute Core Measure Documentation - Palliative Care Palliative Care/ Comfort Measures: Not Applicable - Core Measures Any of the following diagnoses?: stroke - Stroke Discharge Requirements Statin for LDL = or >70 mg/dl on DC: Yes Anticoag for atrial fib/atrial flutter: Not Applicable Antithrombotic for ischemic stroke: Yes Exam - Constitutional Vitals: Temp Pulse Resp BP Pulse Ox 97.4 F L 63 20 172/71 94 09/25/18 11:19 09/25/18 11:19 09/25/18 11:19 09/25/18 11:19 09/25/18 11:19 General appearance: Present: no acute distress, well-nourished - EENT Eyes: Present: PERRL ENT: hearing intact, clear oral mucosa - Neck Neck: Present: supple, normal ROM - Respiratory Respiratory effort: normal Respiratory: bilateral: CTA - Cardiovascular Heart Sounds: Present: S1 & S2. Absent: rub, click - Extremities Extremities: pulses symmetrical, No edema Peripheral Pulses: within normal limits - Abdominal General gastrointestinal: Present: soft, non-tender, non-distended, normal bowel sounds Male genitourinary: Present: normal - Integumentary Integumentary: Present: clear, warm, dry - Musculoskeletal Musculoskeletal: gait normal, strength equal bilaterally - Psychiatric Psychiatric: appropriate mood/affect, intact judgment & insight - Neurologic Neurologic: CNII-XII intact, moves all extremities Plan Activity: advance as tolerated Weight Bearing Status: Weight Bear as Tolerated Diet: low fat, low cholesterol, low salt, diabetic Durable Medical Equipment Needed Upon Discharge: Walker-Rolling Follow up with: RAPHAEL MOORE MD [Primary Care Provider] - 3-5 Days JOSELITO HUGO MD [Staff Physician] - 7 Days Forms: Work/School Release Form(ED), Work/School Release Form Prescriptions: Aspirin 325 mg PO QDAY #30 tablet Carvedilol [Coreg] 12.5 mg PO BID #60 tablet Insulin Glargine [Lantus VIAL] 10 units SUB-Q QHS 30 Days units AtorvaSTATin [Lipitor] 40 mg PO QHS #30 tablet Metformin HCl [metFORMIN] 1,000 mg PO BID #60 tablet oxyCODONE /ACETAMINOPHEN [Percocet 5/325 mg] 1 tab PO Q6H PRN #8 tablet PRN Reason: Pain, Moderate (4-6)
[2018-09-25] MEDS: HumaLOG SUB-Q SCH ×4 (12:16→13:13)
[2018-09-25] MEDS: SODIUM CHLORIDE FLUSH SYRINGE 10 ML IV SCH (12:16)
== END 2018-09-25 18:20 | disposition home or self-care (01) | DRG 64 ==
LOC: ED 16:59 → 4A 19:36
PROVIDERS: ADMIT Internal Medicine; ATTEND Hospitalist
DX: I63.9 Cerebral infarction, unspecified (principal); N17.0 Acute kidney failure with tubular necrosis; I16.1 Hypertensive emergency; E87.1 Hypo-osmolality and hyponatremia; I10 Essential (primary) hypertension; E11.65 Type 2 diabetes mellitus with hyperglycemia; E11.51 Type 2 diabetes mellitus with diabetic peripheral angiopathy without gangrene; D53.9 Nutritional anemia, unspecified; E86.0 Dehydration; E11.319 Type 2 diabetes mellitus with unspecified diabetic retinopathy without macular edema; Z89.411 Acquired absence of right great toe
CPT/HCPCS: 36415; 70450; 70544; 70551; 71045; 80048; 80053; 80061; 82043; 82962; 83036; 84484; 85025; 85027; 85610; 85670; 85730; 93005; 93010; 93306; 93880; 96374; 96375; G0378; A9270-GY; J1644; J1815

== ENCOUNTER 2019-01-07 13:08 | Emergency (ER) | payer MEDICARE ==
[2019-01-07 13:24] VITALS: BP 129/100
[2019-01-07] MEDS ORDERED: ZOFRAN ODT PO ONE (13:24)
--- NOTE | 2019-01-07 13:24 | Event Note ---
ED Screening Note Date of service: 01/07/19 Time: 13:19 ED Screening Note: This is a 68 y.o. M. that presents to the ER with nausea and vomiting x 2 weeks. Denies pain This initial assessment/diagnostic orders/clinical plan/treatment(s) is/are subject to change based on patients health status, clinical progression and re- assessment by fellow clinical providers in the ED. Further treatment and workup at subsequent clinical providers discretion. Patient/guardian urged not to elope from the ED as their condition may be serious if not clinically assessed and managed. Initial orders include: Given zofran ODT 4 mg Labs
[2019-01-07] MEDS ORDERED: ZOFRAN ODT ONE (13:27)
[2019-01-07] MEDS ORDERED: PEPCID IV ONE (13:45)
[2019-01-07] MEDS ORDERED: NACL 0.9% 1000 ML 1,000 ML IV ONE ×2 (13:45→16:17)
[2019-01-07 13:52] LABS: Basophils % (Auto) 0.2 % (0.0-1.8); Eosinophils # (Auto) 0.1 K/mm3 (0.0-0.4); Eosinophils % (Auto) 1.4 % (0.0-4.3); Hematocrit 29.3 % (35.5-45.6); Hemoglobin 9.7 gm/dl (11.8-15.2); Lymphocytes # (Auto) 0.4 K/mm3 (1.2-5.4); Lymphocytes % (Auto) 7.1 % (13.4-35.0); Mean Corpuscular HGB Conc 33 % (32-34); Mean Corpuscular Volume 77 fl (84-94); Monocytes # (Auto) 0.6 K/mm3 (0.0-0.8); Monocytes % (Auto) 11.1 % (0.0-7.3); Platelet Count 165 K/mm3 (140-440); Red Blood Count 3.83 M/mm3 (3.65-5.03); Red Cell Distribution Width 16.3 % (13.2-15.2)
[2019-01-07 14:12] LABS: Calcium 9.7 mg/dL (8.4-10.2)
--- NOTE | 2019-01-07 17:14 | Emergency Department Report ---
<MICHELLE NERI - Last Filed: 01/07/19 17:14> ED General Adult HPI - General Chief complaint: Nausea/Vomiting/Diarrhea Stated complaint: HAVE NOT EATEN X8 DAYS Time Seen by Provider: 01/07/19 13:19 Source: patient, family Mode of arrival: Wheelchair Limitations: No Limitations - History of Present Illness Initial comments: Patient is a 68-year-old -[place] male who is here complaining of some nausea and vomiting for the past 2 weeks. Patient's family states he has been unable to eat for the past 2 weeks. Patient has a history of some mild renal insufficiency diabetes hypertension and possible mild dementia. Patient states he has no fever, pain at this time. - Related Data Previous Rx's Medication Instructions Recorded Last Taken Type Aspirin 325 mg PO QDAY #30 tablet 09/25/18 Unknown Rx AtorvaSTATin [Lipitor] 40 mg PO QHS #30 tablet 09/25/18 Unknown Rx Carvedilol [Coreg] 12.5 mg PO BID #60 tablet 09/25/18 Unknown Rx Insulin Glargine [Lantus VIAL] 10 units SUB-Q QHS 30 Days units 09/25/18 Unknown Rx Lispro Insulin [HumaLOG] 0 unit SUB-Q ACHS units 09/25/18 Unknown Rx Lispro Insulin [HumaLOG] 5 unit SUB-Q AC units 09/25/18 Unknown Rx Metformin HCl [metFORMIN] 1,000 mg PO BID #60 tablet 09/25/18 Unknown Rx oxyCODONE /ACETAMINOPHEN [Percocet 1 tab PO Q6H PRN #8 tablet 09/25/18 Unknown Rx 5/325 mg] Ondansetron [Zofran Odt] 4 mg PO Q8HR #12 tab.rapdis 01/07/19 Unknown Rx Allergies Allergy/AdvReac Type Severity Reaction Status Date / Time No Known Allergies Allergy Unverified 09/21/18 17:11 ED Review of Systems Comment: All other systems reviewed and negative ED Past Medical Hx - Past Medical History Previous Medical History?: Yes Hx Hypertension: Yes Hx CVA: Yes Hx Congestive Heart Failure: No Hx Diabetes: Yes Hx Deep Vein Thrombosis: Yes Hx Asthma: No Additional medical history: PVD - Surgical History Past Surgical History?: No - Social History Smoking Status: Never Smoker Substance Use Type: None - Medications Home Medications: Home Medications Medication Instructions Recorded Confirmed Last Taken Type Aspirin 325 mg PO QDAY #30 tablet 09/25/18 Unknown Rx AtorvaSTATin [Lipitor] 40 mg PO QHS #30 tablet 09/25/18 Unknown Rx Carvedilol [Coreg] 12.5 mg PO BID #60 tablet 09/25/18 Unknown Rx Insulin Glargine [Lantus VIAL] 10 units SUB-Q QHS 30 Days units 09/25/18 Unknown Rx Lispro Insulin [HumaLOG] 0 unit SUB-Q ACHS units 09/25/18 Unknown Rx Lispro Insulin [HumaLOG] 5 unit SUB-Q AC units 09/25/18 Unknown Rx Metformin HCl [metFORMIN] 1,000 mg PO BID #60 tablet 09/25/18 Unknown Rx oxyCODONE /ACETAMINOPHEN [Percocet 1 tab PO Q6H PRN #8 tablet 09/25/18 Unknown Rx 5/325 mg] Ondansetron [Zofran Odt] 4 mg PO Q8HR #12 tab.rapdis 01/07/19 Unknown Rx ED Physical Exam - General Limitations: No Limitations General appearance: alert, in no apparent distress - Head Head exam: Present: atraumatic, normocephalic - Eye Eye exam: Present: normal appearance - ENT ENT exam: Present: mucous membranes moist - Neck Neck exam: Present: normal inspection - Respiratory Respiratory exam: Present: normal lung sounds bilaterally. Absent: respiratory distress, wheezes, rales, rhonchi - Cardiovascular Cardiovascular Exam: Present: regular rate, normal rhythm, normal heart sounds. Absent: systolic murmur, diastolic murmur, rubs, gallop - GI/Abdominal GI/Abdominal exam: Present: soft, normal bowel sounds. Absent: distended, tenderness, guarding, rebound - Rectal Rectal exam: Present: deferred - Extremities Exam Extremities exam: Present: normal inspection - Back Exam Back exam: Present: normal inspection - Neurological Exam Neurological exam: Present: alert, oriented X3 - Psychiatric Psychiatric exam: Present: normal affect, normal mood - Skin Skin exam: Present: warm, dry, intact, normal color. Absent: rash ED Medical Decision Making - Lab Data Result diagrams: 01/07/19 13:43 01/07/19 13:43 09/25/2018 the patient being creatinine was 30 and 1.8. Today he is shows a mild increase ED Disposition Clinical Impression: Nausea and vomiting Qualifiers: Vomiting type: unspecified Vomiting Intractability: unspecified Qualified Cod e(s): R11.2 - Nausea with vomiting, unspecified Disposition: DC-01 TO HOME OR SELFCARE Condition: Stable Instructions: Acute Nausea and Vomiting (ED) Prescriptions: Ondansetron [Zofran Odt] 4 mg PO Q8HR #12 tab.rapdis Referrals: PRIMARY CARE, [Primary Care Provider] - 3-5 Days Forms: Work/School Release Form(ED) <CHAPO NAYLOR - Last Filed: 01/07/19 19:37> ED Review of Systems ROS: Stated complaint: HAVE NOT EATEN X8 DAYS Other details as noted in HPI ED Course Vital Signs 01/07/19 13:14 Temperature 98.2 F Pulse Rate 99 H Respiratory 20 Rate Blood Pressure 129/100 O2 Sat by Pulse 100 Oximetry ED Medical Decision Making - Lab Data Result diagrams: 01/07/19 13:43 01/07/19 13:43 Labs 01/07/19 01/07/19 01/07/19 13:43 13:43 16:38 WBC 5.0 RBC 3.83 Hgb 9.7 L Hct 29.3 L MCV 77 L MCH 25 L MCHC 33 RDW 16.3 H Plt Count 165 Lymph % (Auto) 7.1 L [place] % (Auto) 11.1 H Eos % (Auto) 1.4 Baso % (Auto) 0.2 Lymph # 0.4 L [place] # 0.6 Eos # 0.1 Baso # 0.0 Seg Neutrophils % 80.2 H Seg Neutrophils # 4.0 Sodium 144 Potassium 4.6 Chloride 98.1 Carbon Dioxide 24 Anion Gap 27 BUN 33 H Creatinine 2.1 H Estimated GFR 38 BUN/Creatinine Ratio 16 Glucose 171 H Calcium 9.7 Urine Color Yellow Urine Turbidity Clear Urine pH 5.0 Ur Specific [place] 1.012 Urine Protein <15 mg/dl Urine Glucose (UA) Neg Urine Ketones 20 Urine Blood Sm Urine Nitrite Neg Urine Bilirubin Neg Urine Urobilinogen 2.0 Ur Leukocyte Esterase Neg Urine WBC (Auto) 1.0 Urine RBC (Auto) 4.0 U Epithel Cells (Auto) 1.0 Urine Bacteria (Auto) 1+ Urine Mucus Few - Medical Decision Making ua normal, pt tx plan discussion with DR. Neri, pt will be dc'd to home in stable condition, pt dc' to self to home via pov via son, pt is currently a/o x 3 pt is ambulatory to steady gain no n/v/d pt is tolerating po intake at this time. Critical care attestation.: If time is entered above; I have spent that time in minutes in the direct care of this critically ill patient, excluding procedure time. ED Disposition Is pt being admited?: No Does the pt Need Aspirin: No Time of Disposition: 19:20
[2019-01-07 17:29] LABS: Bacteria,Urine 1+ /HPF (Negative); Bilirubin,Urine NEG (Negative); Blood,Urine SM (Negative); Color,Urine Yellow (Yellow); Mucus,Urine FEW /HPF; Protein,Urine <15 mg/dL mg/dL (Negative)
== END 2019-01-07 19:31 | disposition home or self-care (01) ==
LOC: ED 13:08
DX: R11.2 Nausea with vomiting, unspecified (principal); I10 Essential (primary) hypertension; E11.9 Type 2 diabetes mellitus without complications; F03.90 Unspecified dementia, unspecified severity, without behavioral disturbance, psychotic disturbance, mood disturbance, and anxiety; N28.9 Disorder of kidney and ureter, unspecified; Z86.718 Personal history of other venous thrombosis and embolism; Z86.73 Personal history of transient ischemic attack (TIA), and cerebral infarction without residual deficits; Z79.4 Long term (current) use of insulin; Z79.899 Other long term (current) drug therapy
CPT/HCPCS: 36415; 80048; 81001; 85025; 96361; 96374; 96375; 99283; J7030; Q0162